=== PATIENT | female | born 1990 | race Hispanic/Latino ===

== ENCOUNTER 2022-08-10 07:51 | Inpatient (IN) | payer OTHER ==
[~2022-08-10] VITALS: Ht 180.3 cm; Wt 121.9 kg
[2022-08-10] VITALS (33 sets, daily range): BP systolic 106–142; BP diastolic 55–100
[2022-08-10] MEDS ORDERED: GNP250TA9 PO (08:29)
[2022-08-10] MEDS ORDERED: VITA25TA3 PO (08:29)
[2022-08-10] MEDS ORDERED: PRENTAB9 PO (08:29)
[2022-08-10] MEDS ORDERED: HOME MED LIST COMPLETE! XX SCH (08:30)
[2022-08-10 09:43] LABS: HEMATOCRIT 38.6 % (36.0-47.0); HEMOGLOBIN 12.6 g/dl (12.0-15.5); MEAN CORPUSCULAR HEMOGLOBIN 27.3 pg (27.0-33.0); MEAN CORPUSCULAR HGB CONC 32.6 g/dl (32.0-36.5); MEAN CORPUSCULAR VOLUME 83.5 fl (80.0-96.0); PLATELET COUNT, AUTOMATED 302 10^3/uL (150-450); RED BLOOD COUNT 4.62 10^6/uL (4.00-5.40); WHITE BLOOD COUNT 12.2 10^3/uL (4.0-10.0)
[2022-08-10] MEDS ORDERED: OXYTOCIN INJ 10 UNITS/ML VIAL (J2590) IV PRN (09:45)
[2022-08-10] MEDS ORDERED: miSOPROStol 25MCG 1/4 TABLET PV ONE (09:45)
[2022-08-10] MEDS ORDERED: TRANEXAMIC ACID INJection 1,000 MG in NS 100 ML IV PRN (09:45)
[2022-08-10] MEDS ORDERED: OXYTOCIN DRIP 30 UNITS in IV 1 EA IV PRN ×4 (09:45)
[2022-08-10] MEDS ORDERED: CARBOPROST TROMETHAMINE 250 MCG/ML AMP IM PRN (09:45)
[2022-08-10] MEDS ORDERED: OXYTOCIN INJ 10 UNITS/ML VIAL (J2590) IM PRN (09:45)
[2022-08-10] MEDS ORDERED: LIDOCAINE 1% MDV 20ML VIAL INFIL PRN (09:45)
[2022-08-10 10:59] LABS: ALT/SGPT 23 IU/L (0-32); BILIRUBIN,TOTAL 0.3 MG/DL (0.2-1.0); CREATININE FOR GFR 0.64 MG/DL (0.55-1.30); GLOMERULAR FILTRATION RATE > 60.0 (>60); LDH LACTATE DEHYDROGENASE 134 U/L (84-246); URIC ACID 4.4 MG/DL (2.6-6.0)
[2022-08-10 11:25] LABS: TOTAL PROTEIN,RANDOM URINE 35.1 MG/DL (0.0-12.0)
[2022-08-10] MEDS ORDERED: LR 1,000 ML IV SCH (14:50)
[2022-08-10] MEDS ORDERED: OXYTOCIN DRIP 30 UNITS in IV 1 EA IV SCH (14:50)
[2022-08-10] MEDS ORDERED: ACETAMINOPHEN 325 MG TAB PO ONE (20:35)
[2022-08-10] MEDS ORDERED: diphenhydrAMINE 50MG/ML VIAL IV PRN (20:50)
[2022-08-10] MEDS ORDERED: EPIDURAL/PCA KEYS XX PRN (20:50)
[2022-08-10] MEDS ORDERED: ONDANSETRON 4MG 2ML VIAL IV PRN (20:50)
[2022-08-10] MEDS ORDERED: LR 500 ML IV PRN (20:50)
[2022-08-10] MEDS ORDERED: FENTANYL/ROPIVACAINE/NACL BAG 100 ML EPIDURAL SCH (20:50)
[2022-08-10] MEDS ORDERED: NALOXONE INJ 0.4MG/1ML VIAL (J2310 PER 1MG) IV PRN (20:50)
[2022-08-10] MEDS ORDERED: ePHEDrine SULFATE 25 MG/5 ML(5MG/ML) SYRINGE IVP PRN (20:50)
[2022-08-10] MEDS ORDERED: FENTANYL 2MCG/ML ROPIVACAINE 0.2% IN 0.9% NACL 100ML IVBAG As Ordered ONE (20:51)
[2022-08-11] VITALS (9 sets, daily range): BP systolic 113–147; BP diastolic 64–86
[2022-08-11] MEDS ORDERED: ANUSOL HC CREAM 30GM TOP PRN (02:40)
[2022-08-11] MEDS ORDERED: DIBUCAINE 1% OINTMENT 30GM TOP PRN (02:40)
[2022-08-11] MEDS ORDERED: DOCUSATE SODIUM 100MG CAPSULE PO PRN (02:40)
[2022-08-11] MEDS ORDERED: RHOGAM 300 MCG (1500 IU) INJ (J2790) IM SCH (02:40)
[2022-08-11] MEDS ORDERED: OXYTOCIN DRIP 30 UNITS in IV 1 EA IV SCH ×4 (02:40)
[2022-08-11] MEDS ORDERED: IBUPROFEN 800 MG TAB PO PRN (02:40)
[2022-08-11] MEDS ORDERED: ACETAMINOPHEN 500 MG TAB PO PRN (02:40)
[2022-08-11] MEDS: PRENATAL VITAMINS CHEWABLE TABLET PO SCH (08:17)
[2022-08-11] MEDS: ACETAMINOPHEN TAB 650MG DOSE (2X325MG) PO PRN (16:49)
[2022-08-11] MEDS: IBUPROFEN 600MG TAB PO PRN (20:03)
[2022-08-12] MEDS: ACETAMINOPHEN TAB 650MG DOSE (2X325MG) PO PRN (05:46)
[2022-08-12 06:00] VITALS: BP 128/76
[2022-08-12] MEDS: PRENATAL VITAMINS CHEWABLE TABLET PO SCH (09:00)
[2022-08-12 17:56] VITALS: BP 132/83
[2022-08-12] MEDS: IBUPROFEN 600MG TAB PO PRN (19:05)
[2022-08-13 06:10] VITALS: BP 126/80
[2022-08-13] MEDS: PRENATAL VITAMINS CHEWABLE TABLET PO SCH (08:41)
[2022-08-13] MEDS ORDERED: IBUP80TA PO (08:47)
[2022-08-13] MEDS ORDERED: ACET-683 PO (08:47)
[2022-08-13] MEDS ORDERED: COLA100C5 PO (08:47)
== END 2022-08-13 10:15 | disposition home or self-care (01) | DRG 807 ==
LOC: M LDI 07:51 → M OBS 08-11 05:00
PROVIDERS: ADMIT Advanced Practice Midwife; ATTEND Advanced Practice Midwife
PROC: 3E0P7VZ Introduction of Hormone into Female Reproductive, Via Natural or Artificial Opening (ICD-10-PCS; 2022-08-10)
PROC: 10907ZC Drainage of Amniotic Fluid, Therapeutic from Products of Conception, Via Natural or Artificial Opening (ICD-10-PCS; 2022-08-10)
PROC: 3E033VJ Introduction of Other Hormone into Peripheral Vein, Percutaneous Approach (ICD-10-PCS; 2022-08-10)
PROC: 10E0XZZ Delivery of Products of Conception, External Approach (ICD-10-PCS; principal; 2022-08-11)
PROC: 0KQM0ZZ Repair Perineum Muscle, Open Approach (ICD-10-PCS; 2022-08-11)
DX: O11.4 Pre-existing hypertension with pre-eclampsia, complicating childbirth (principal); Z37.0 Single live birth; Z3A.37 37 weeks gestation of pregnancy; O69.82X0 Labor and delivery complicated by other cord entanglement, without compression, not applicable or unspecified; O70.1 Second degree perineal laceration during delivery